=== PATIENT | male | born 1990 | race Caucasian/White ===

== ENCOUNTER 2020-02-18 08:55 | Day surgery (SDC) | payer OTHER ==
--- NOTE | 2020-02-18 09:12 | ED Physician Documentation ---
PD HPI ABD PAIN - Stated complaint Stated Complaint: RT ABD PX - History obtained from History obtained from: Patient - History of Present Illness Timing - onset: Enter time (0200), Today Timing - duration: Hours Timing - details: Abrupt onset, Still present Quality: Sharp, Pain Location: RLQ Improved by: Laying still Worsened by: Eating, Moving, Position, Palpation Associated symptoms: Nausea. No: Vomiting, Diarrhea, Constipation Similar symptoms before: Has not had sx before Recently seen: Clinic - Additional information Additional information: 29-year-old male developed some abdominal pain in the middle of the night periumbilical at about 2:00 in the morning. He had a very difficult time sleeping throughout the night the pain is migrated down to the right lower quadrant and and he has never had pain in this area previously. He tried to eat something this morning did not go down too well and he went in to be checked out was sent to the emergency department for evaluation of appendicitis. He has not had a fever he has not had vomiting he has had 2 bowel movements this morning without relief of his pain. Indicates that he has not otherwise been ill recently. Review of Systems Constitutional: denies: Fever, Myalgias, Fatigue, Sweats Eyes: denies: Decreased vision Ears: denies: Ear pain Nose: reports: Rhinorrhea / runny nose Throat: denies: Dental pain / toothache Cardiac: denies: Chest pain / pressure, Palpitations Respiratory: denies: Dyspnea, Cough GI: reports: Abdominal Pain, Nausea. denies: Abdominal Swelling, Vomiting, Constipation, Diarrhea : denies: Dysuria, Frequency Skin: denies: Rash Musculoskeletal: denies: Neck pain, Back pain, Extremity pain Neurologic: denies: Generalized weakness, Focal weakness, Numbness PD PAST MEDICAL HISTORY - Past Surgical History Past Surgical History: No - Present Medications Home Medications: Ambulatory Orders Medication Instructions Recorded Confirmed No Known Home Medications 02/18/20 02/18/20 - Allergies Allergies/Adverse Reactions: Allergies Allergy/AdvReac Type Severity Reaction Status Date / Time No Known Drug Allergies Allergy Verified 02/18/20 09:24 - Social History Does the pt smoke?: No Smoking Status: Never smoker Does the pt drink ETOH?: No Does the pt have substance abuse?: No - Immunizations Immunizations are current?: Yes - POLST Patient has POLST: No PD ED PE NORMAL - Vitals Vital signs reviewed: Yes - General General: Alert and oriented X 3, No acute distress, Well developed/nourished - HEENT HEENT: Atraumatic, PERRL, EOMI - Neck Neck: Supple, no meningeal sign, No bony TTP - Cardiac Cardiac: RRR, No murmur - Respiratory Respiratory: No respiratory distress, Clear bilaterally - Abdomen Abdomen: Normal bowel sounds, Soft, Non distended, No organomegaly, Other (RLQ pain is reproducible and without garding. There is some referred rebound tenderness. ) - Back Back: No CVA TTP, No spinal TTP - Derm Derm: Normal color, Warm and dry, No rash - Extremities Extremities: No deformity, No edema - Neuro Neuro: Alert and oriented X 3, home visitor home base head start 2-12 intact, No motor deficit, No sensory deficit, Normal speech Eye Opening: Spontaneous Motor: Obeys Commands Verbal: Oriented GCS Score: 15 - Psych Psych: Normal mood, Normal affect Results - Vitals Vitals: Vital Signs - 24 hr 02/18/20 09:13 Temperature 36.7 C Heart Rate 63 Respiratory 18 Rate Blood Pressure 150/74 H O2 Saturation 95 Oxygen O2 Source Room air - Labs Labs: Laboratory Tests 02/18/20 02/18/20 02/18/20 09:12 09:27 09:27 WBC 10.9 H RBC 5.35 Hgb 16.3 Hct 45.4 MCV 84.9 MCH 30.5 MCHC 35.9 RDW 12.1 Plt Count 240 MPV 9.9 Neut # (Auto) 9.2 H Lymph # (Auto) 1.0 L [place] # (Auto) 0.5 Eos # (Auto) 0.0 Baso # (Auto) 0.0 Absolute Nucleated RBC 0.00 Nucleated RBC % 0.0 Sodium 135 Potassium 3.9 Chloride 100 L Carbon Dioxide 25 Anion Gap 10.0 BUN 16 Creatinine 1.0 Estimated GFR (MDRD) 90 Glucose 123 H Calcium 9.3 Total Bilirubin 1.0 AST 17 ALT 21 Alkaline Phosphatase 49 Total Protein 8.0 Albumin 5.2 Globulin 2.8 Albumin/Globulin Ratio 1.9 Lipase 20 L Urine Color YELLOW Urine Clarity CLEAR Urine pH 6.0 Ur Specific [place]ney 1.020 Urine Protein NEGATIVE Urine Glucose (UA) NEGATIVE Urine Ketones NEGATIVE Urine Occult Blood NEGATIVE Urine Nitrite NEGATIVE Urine Bilirubin NEGATIVE Urine Urobilinogen 0.2 (NORMAL) Ur Leukocyte Esterase NEGATIVE Ur Microscopic Review NOT INDICATED Urine Culture Comments NOT INDICATED - Rads (name of study) CT ab/pel w Radiology: Prelim report reviewed (Impression: The appendix is mildly dilated and there is mild surrounding inflammatory change. Findings consistent with mild acute appendicitis. No rupture.), Discussed with rads, EMP read indepedently, See rad report PD MEDICAL DECISION MAKING - ED course Complexity details: reviewed results, re-evaluated patient, considered differential, d/w patient ED course: Previously well 29-year-old male with onset of abdominal pain at about 2 AM has persistence of his pain migrated to the right lower quadrant he has tenderness on examination he has an elevated white blood count of 10.[address] scan of the abdomen and pelvis read by the radiologist is consistent with acute appendicitis. The surgeon Dr. Jaimes is consulted in the case and recommends administration of Unasyn and he will see the patient later this afternoon. He is made n.p.o. and a respiratory PCR is pending. Departure - Departure Disposition: ED Transfer to [facility] Clinical Impression: Appendicitis Qualifiers: Appendicitis type: acute appendicitis Acute appendicitis type: with localized peritonitis Appendicitis gangrene presence: without gangrene Appendicitis perforation presence: without perforation Appendicitis abscess presence: without abscess Qualified Code(s): K35.30 - Acute appendicitis with localized peritonitis, without perforation or gangrene
[2020-02-18 09:23] LABS: BILIRUBIN,URINE NEGATIVE (NEGATIVE); GLUCOSE, URINE (UA) NEGATIVE (NEGATIVE); KETONES,URINE (UA) NEGATIVE (NEGATIVE); LEUKOCYTE ESTERASE, URINE NEGATIVE (NEGATIVE); NITRITE,URINE NEGATIVE (NEGATIVE); OCCULT BLOOD,URINE NEGATIVE (NEGATIVE); PROTEIN,URINE NEGATIVE (NEGATIVE); UROBILINOGEN,URINE 0.2 (NORMAL) E.U./dL (NORMAL)
[2020-02-18 09:24] LABS: CLARITY,URINE CLEAR (CLEAR)
[2020-02-18 09:36] LABS: BASOPHILS % (AUTO) 0.3 %; EOSINOPHILS % (AUTO) 0.1 %; HGB - HEMOGLOBIN 16.3 g/dL (14.0-18.0); LYMPHOCYTES % (AUTO) 9.4 %; MEAN CORPUSCULAR HEMOGLOBIN 30.5 pg (27.0-31.0); MEAN CORPUSCULAR HGB CONC 35.9 g/dL (32.0-36.0); MEAN CORPUSCULAR VOLUME 84.9 fL (80.0-94.0); MEAN PLATELET VOLUME 9.9 fL (7.4-11.4); MONOCYTES # (AUTO) 0.5 10^3/uL (0.0-1.0); MONOCYTES % (AUTO) 4.9 %; NEUTROPHILS # (AUTO) 9.2 10^3/uL (1.5-6.6); NEUTROPHILS % (AUTO) 84.9 %; PLT - PLATELET COUNT 240 10^3/uL (130-450); RED BLOOD COUNT 5.35 10^6/uL (4.70-6.10); RED CELL DISTRIBUTION WIDTH 12.1 % (12.0-15.0); WHITE BLOOD COUNT 10.9 x10^3/uL (4.8-10.8)
[2020-02-18] MEDS ORDERED: IOVERSOL 320 100 ML VIAL IVP ONE ×2 (09:37→13:19)
[2020-02-18 09:51] LABS: ALBUMIN 5.2 g/dL (3.2-5.5); ALBUMIN/GLOBULIN RATIO 1.9 (1.0-2.2); CALCIUM 9.3 mg/dL (8.5-10.3)
--- NOTE | 2020-02-18 10:23 | CT Report ---
PROCEDURE: Abdomen/Pelvis W INDICATIONS: RLQ pain since 2am CONTRAST: IV CONTRAST: Optiray 320 ml: 100 PO CONTRAST: *NO PO CONTRAST TECHNIQUE: After the administration of intravenous contrast, 5 mm thick sections acquired from the diaphragms to the symphysis. 5 mm thick coronal and sagittal reformats were acquired. For radiation dose reducti on, the following was used: automated exposure control, adjustment of mA and/or kV according to clinton ent size. COMPARISON: None. FINDINGS: Image quality: Excellent. ABDOMEN: Lung bases: Lung bases are clear. Heart size is normal. Solid organs: Liver and spleen are normal in size and enhancement. Gallbladder is unremarkable Javi iary system is non dilated. Pancreas enhances normally. No adrenal nodules. Kidneys demonstrate no rmal size and enhancement, without hydronephrosis. Peritoneum and bowel: The appendix is mildly dilated measuring 0.8 cm, (6/27). There is mild surround ing inflammatory change best seen on coronal images. No free air or loculated fluid collection to sug gest rupture. Tiny focus of gas within the lumen of the appendix. No appendicolith seen. No small bow el obstruction. Nodes and vessels: No retroperitoneal or mesenteric adenopathy by size criteria. Aorta and inferior vena cava are normal in size. Miscellaneous: No ventral hernias. PELVIS: Genitourinary: Bladder wall thickness is normal. No free fluid. Miscellaneous: No inguinal hernias or adenopathy. Bones: No suspicious bony lesions. No vertebral body compression fractures. IMPRESSION: The appendix is mildly dilated and there is mild surrounding inflammatory change. Findings consistent with mild acute appendicitis. No rupture. Results were discussed with Dr. Bubba Dye in the emergency department at 9:20 AM [facility] on . Reviewed by: Francisco Pinon MD on 02/18/2020 9:22 AM [facility] Approved by: Francisco Pnion MD on 02/18/2020 9:22 AM [facility] Station ID: [id number]
[2020-02-18] MEDS ORDERED: AMPICILLIN/SULBACTAM 1.5 GM in SODIUM CHLORIDE 0.9% MINIBAG 100 ML IV STA (10:25)
[2020-02-18 12:48] LABS: C. PNEUMONIAE- RESP PCR PANEL NOT DETECTED
--- NOTE | 2020-02-18 13:25 | SURGERY HX AND PHYSICAL(T) ---
Surgical History & Physical - Chief Complaint/HPI Chief Complaint: Abdominal pain History of Present Illness: 29-year-old male presenting with 1 day of abdominal pain. Work-up included CT scan as well as lab evaluation. Patient notable for a leukocytosis, CT consistent with appendicitis with inflammatory changes. Patient with no other past medical history. Opted to proceed to the operating room urgently for laparoscopic intervention. Surgical consultation called. - PMH/PSH/Social Hx Does the pt have a hx of MRSA?: No Smoking Status: Never smoker Does the pt drink ETOH?: No Does the pt have substance abuse?: No - Home Meds and Allergies Home Medications: No Known Home Medications 02/18/20 Allergies/Adverse Reactions: Allergies Allergy/AdvReac Type Severity Reaction Status Date / Time No Known Drug Allergies Allergy Verified 02/18/20 09:24 - Review of Systems Constitutional: Fatigue, Fever Gastrointestinal: Abdominal pain. No: Nausea, Vomiting, Diarrhea - Vital Signs Heart Rate: 82 Blood Pressure: 127/75 Temperature: 36.7 C Respiratory Rate: 16 O2 Saturation: 99 Weight (kg): 98.883 kg Height: 1.91 m - Physical Exam General Appearance: positive: No acute distress, Alert Eyes Bilatera: positive: Normal inspection, PERRL, EOMI ENT: positive: ENT inspection nml Neck: positive: Nml inspection Respiratory: positive: Chest non-tender, No respiratory distress, Breath sounds nml, Wheezes, Rales, Rhonchi Cardiovascular: positive: Regular rate & rhythm Abdomen: positive: No distention, Tenderness. negative: Guarding, Rebound Skin: positive: Color nml Extremities: positive: Non-tender, Full ROM, Nml appearance Neurologic/Psychiatric: positive: Oriented x3, CN's nml (2-12), Motor nml, Sensation nml, Mood/affect nml - Patient Review Patient Review: Problems were reviewed with the patient during this visit. Medications were reviewed with the patient during this visit. Allergies were reviewed this patient during this visit. Pertinent Tests Reviewed: All pertitent test for this patient were reviewed. - Assessment & Plan Assessment and Plan: 29 yo male presenting with acute appendicitis with no comorbid states. Leukocytosis, CT confirmed (see below). Plan going forward is as follows: 1. Bowel rest, IV fluid resuscitation, IV antibiotics. 2. Preoperative chest x-ray, preoperative EKG, labs evaluated. 3. Planned diagnostic laparoscopy, laparoscopic appendectomy, other indicated procedures. Patient counseled of the risk associated with operative intervention including but not limited to conversion to open procedure, injury to local structures, and anesthesia risks of heart attack, stroke, . 4. Postoperative care under observation status with continued IV antibiotics. CT abdomen pelvis impression: 1. The appendix is mildly dilated and there is mild surrounding inflammatory change. 2. Findings consistent with mild acute appendicitis. No rupture.
--- NOTE | 2020-02-18 14:44 | ANESTHESIA ---
Pre-Anesthesia VS, & Labs - Diagnosis appendicitis - Procedure lap appendectomy Vital Signs: Temp Pulse Resp BP Pulse Ox 36.7 C 81 16 133/66 H 100 02/18/20 13:25 02/18/20 13:57 02/18/20 13:57 02/18/20 13:57 02/18/20 13:57 Height: 6 ft 3 in Weight (kg): 98.883 kg Body Mass Index: 27.2 BMI Classification: Overweight - NPO >8 hours - Lab Results Current Lab Results: Laboratory Tests 02/18/20 09:27: Sodium 135, Potassium 3.9, Chloride 100 L, Carbon Dioxide 25, Anion Gap 10.0, BUN 16, Creatinine 1.0, Estimated GFR (MDRD) 90, Glucose 123 H, Calcium 9.3, Total Bilirubin 1.0, AST 17, ALT 21, Alkaline Phosphatase 49, Total Protein 8.0, Albumin 5.2, Globulin 2.8, Albumin/Globulin Ratio 1.9, Lipase 20 L 02/18/20 09:27: WBC 10.9 H, RBC 5.35, Hgb 16.3, Hct 45.4, MCV 84.9, MCH 30.5, MCHC 35.9, RDW 12.1, Plt Count 240, MPV 9.9, Neut # (Auto) 9.2 H, Lymph # (Auto) 1.0 L, [place] # (Auto) 0.5, Eos # (Auto) 0.0, Baso # (Auto) 0.0, Absolute Nucleated RBC 0.00, Nucleated RBC % 0.0 Lab results reviewed: Yes Fish Bones: 02/18/20 09:27 02/18/20 09:27 Home Medications and Allergies Home Medications: Ambulatory Orders No Known Home Medications 02/18/20 No Known Home Medications 02/18/20 Allergies/Adverse Reactions: Allergies Allergy/AdvReac Type Severity Reaction Status Date / Time No Known Drug Allergies Allergy Verified 02/18/20 09:24 Anes History & Medical History - Anesthetic History Anesthesia Complications: reports: No previous complications Family history of Anesthesia Complications: Denies Family history of Malignant Hyperthermia: Denies - Medical History Cardiovascular: reports: None Pulmonary: reports: None Gastrointestinal: reports: None Urinary: reports: None Neuro: reports: None Musculoskeletal: reports: None Endocrine/Autoimmune: reports: None Blood Disorders: reports: None Skin: reports: None Smoking Status: Never smoker Psychosocial: reports: No issues indicated Exam General: Alert, Oriented x3, Cooperative, No acute distress Dental: WNL Mouth Openin Fingerbreadth Neck Mobility: Normal Mallampati classification: II Respiratory: Lungs clear, Normal breath sounds, No respiratory distress, No accessory muscle use Cardiovascular: Regular rate, Normal S1, Normal S2, No murmurs Plan Anesthesia Type: General, Transverse Abdominis Plane (TAP) Block Regional Block: Per Surgeon's request for Post Op pain control Consent for Procedure(s) Verified and Reviewed: Yes Code Status: Attempt Resuscitation ASA classification: 2-Mild systemic disease Is this case an emergency?: No
[2020-02-18] MEDS ORDERED: BUPIVACAINE 0.5% PF 30 ML VIAL SUBQ ONE ×2 (17:11)
[2020-02-18] MEDS ORDERED: LIDOCAINE MPF 2%-EPI 1:200000 20 ML VIAL SUBQ ONE ×2 (17:12)
--- NOTE | 2020-02-18 18:18 | OPERATIVE REPORT ---
Operative Report - General Procedure Date: 02/18/20 Planned Procedure: 1. Diagnostic laparoscopy 2. Laparoscopic appendectomy 3. Lysis of adhesions 4. Abdominal washout Pre-Op Diagnosis: Abdominal pain, acute appendicitis, obesity Procedure Performed: 1. Diagnostic laparoscopy 2. Laparoscopic appendectomy 3. Lysis of adhesions 4. Abdominal washout Post Op Diagnosis: Same, nonsuppurative, nonperforated, appendicitis - Procedure Note Primary Surgeon: Theodore Secondary Surgeon: David Anesthesia Provider: Clay Anesthesia Technique: General ET tube, Local Pathology: Appendix Estimated Blood Loss (mL): 30 Indications: See electronic medical record Findings: 1. Dense right lower quadrant adhesions 2. Nonsuppurative, nonperforated, appendicitis 3. Neither feculent nor purulent peritonitis 4. A hemostatic at the conclusion of this case 5. Ileocecal valve protected and intact; right ureter protected and intact Complications: None - Other Other Information/Narrative: OPERATIVE PROCEDURE: The patient was taken to the operating room, placed supine on the operating table. The patent was already obtained tor informed consent which was documented in the patients permanent medical record The patient was induced for general endotracheal anesthesia. The patient was positioned, off loaded and padded at all pressure points. The patient was placed for a Varma catheter and tucked for the left arm. The patient was prepped and draped in the usual sterile fashion. The patient was called for a time out which was agreed to all in the room. Open Goetz technique was performed through umbilicus and umbilical trocar was placed. This was achieved with a circumlinear sandra-umbilical incision. This is taken through the subcutaneous fat, the umbilical stalk was dissected off and obvious hernia defect was appreciated. This was done without any injury to the umbilical skin. That cocopah defect was enlarged and accommodated Goetz trocar without any complication. Insufflation was commenced which the patient tolerated to 15 mmHg well with no complication. Additional trocars were placed suprapubic and left lower quadrant under direct laparoscopic vision. At this time the patient was placed in Trendelenburg position with right side up and we proceeded to isolate the cecum which was densely adhered to the sidewall. There was dense adhesions of the appendix along the right pelvic inlet. Careful adhesiolysis were performed with laparoscopic electrocautery. The appendix was ultimately dissected free from the sidewall as well as the pelvic inlet protecting the iliac vessels as well as the ureter with no complication. Please note that the ileocecal valve was also protected and remained intact throughout the entirety of this operative intervention. The appendix was continued to be mobilized and thereafter we achieved mobilization medially taking care to note the location of the ureter which was protected and identified throughout the entirety at this case especially given the extent of the patients inflammatory changes. Ultimately the cecum was isolated free, and the appendix was thereafter completely mobilized off the abdominal and pelvic sidewall. At this time there were dense adhesions noted of the appendix to the ascending colon and cecum and this required careful dissection as well, both blunt and also using the suction armature varnisher and laparoscopic electrocautery. At this time a [place] was used to dissect the cecal-appendiceal junction and thereafter using a ENDOGIA linear cutting stapler, the appendix was divided at the base to include portion at the cecum. The ileocecal valve was identified and protected throughout with no involvement. At this time, we continued to mobilize the appendix off the ascending colon and caecum making sure there was no inadvertent injury to the ascending colon and the cecum which was again densely adhered to the appendix. This was performed with great care using blunt as well as laparoscopic electrocautery and blunt dissection with the suction armature varnisher. The mesoappendix as well as a portion of the fold of [place] was divided using the laparoscopic Endo COLTON stapler. This required 2 firings with no complication. After careful dissection the appendix ultimately isolated and dissected free the appendix which was placed into an Endo Catch bag for control of any further spillage. The appendiceal staple line and mesoappendix staple line and ligature were evaluated and hemostatic. At this time, we extensively irrigated the abdomen with greater than 2 liters of sterile saline and aspirated clear. At this time all trochars, secondary, were removed under direct laparoscopic visualization with no consequent bleeding. We removed the Goetz trocar, passed the specimen off for permanent pathology. We closed the umbilical defect with several [id number]'s of 0 Vicryl, and performed umbilicoplasty simultaneous. A mixture of quarter percent Marcaine and 1% lidocaine were instilled within the wounds. All skin and subcutaneous tissue was reapproximated with a subcuticular of 4-0 Monocryl. Wounds were dressed with Dermabond. I was present for the entirety of this operative intervention patient tolerated procedure well which is no complication. All counts were sponges needles and instruments were correct at the conclusion of this operative case. Please note that voice recognition software was used to transcribe this note and inadvertent errors might persist in spite of review and editing. I am obliged to you for your attention. I am thankful to you for allowing me to participate with you in this care of this patient.
[2020-02-18] MEDS ORDERED: LACTATED RINGERS 1,000 ML IV ONE (18:25)
[2020-02-18] MEDS ORDERED: ONDANSETRON 4 MG/2 ML VIAL IVP PRN (18:28)
[2020-02-18] MEDS: HYDROmorphone 0.5 MG/0.5 ML SYRINGE IVP PRN ×2 (18:53→20:07)
[2020-02-18] MEDS: LACTATED RINGERS 1,000 ML IV SCH (18:57)
--- NOTE | 2020-02-18 19:29 | ANESTHESIA POST OP EVALUATION ---
Anesthesia Post Eval - Post Anesthesia Eval Vitals: Last Vital Signs Temp 36.5 C 02/18/20 19:00 Pulse 86 02/18/20 19:00 Resp 18 02/18/20 19:00 BP 155/81 H 02/18/20 19:00 Pulse Ox 96 02/18/20 19:00 CV Function Including HR & BP: positive: Stable Pain Control: positive: Satisfactory Nausea & Vomiting: positive: Negative Mental Status: positive: Baseline Respiratory Status: Airway Patent Hydration Status: Satisfactory Anesthesia Complications: positive: None
[2020-02-18] MEDS: PIPERACILLIN/TAZOBACTAM 3.375 GM in SODIUM CHLORIDE 0.9% MINIBAG 100 ML IV SCH (19:31)
[2020-02-18] MEDS: DOCUSATE SODIUM 100 MG CAPSULE PO SCH (20:02)
[2020-02-18] MEDS: polyethylene glycoL 3350 17 GM PACKET PO SCH (20:02)
[2020-02-18] MEDS: ACETAMINOPHEN 1,000 MG/100 ML 100 ML IV SCH (20:17)
[2020-02-18] MEDS: oxyCODONE 5 MG TABLET PO PRN (22:01)
[2020-02-19] MEDS: ACETAMINOPHEN 1,000 MG/100 ML 100 ML IV SCH ×3 (01:20→13:01)
[2020-02-19] MEDS: PIPERACILLIN/TAZOBACTAM 3.375 GM in SODIUM CHLORIDE 0.9% MINIBAG 100 ML IV SCH ×3 (01:21→13:01)
[2020-02-19] MEDS: oxyCODONE 5 MG TABLET PO PRN ×3 (02:14→12:50)
[2020-02-19] MEDS: LACTATED RINGERS 1,000 ML IV SCH (04:56)
[2020-02-19 06:00] LABS: BASOPHILS % (AUTO) 0.4 %; EOSINOPHILS # (AUTO) 0.1 10^3/uL (0.0-0.7); EOSINOPHILS % (AUTO) 0.8 %; HGB - HEMOGLOBIN 13.1 g/dL (14.0-18.0); LYMPHOCYTES # (AUTO) 1.9 10^3/uL (1.5-3.5); LYMPHOCYTES % (AUTO) 23.9 %; MEAN CORPUSCULAR HEMOGLOBIN 30.3 pg (27.0-31.0); MEAN CORPUSCULAR HGB CONC 34.6 g/dL (32.0-36.0); MEAN CORPUSCULAR VOLUME 87.7 fL (80.0-94.0); MEAN PLATELET VOLUME 9.6 fL (7.4-11.4); MONOCYTES # (AUTO) 0.7 10^3/uL (0.0-1.0); MONOCYTES % (AUTO) 9.1 %; NEUTROPHILS # (AUTO) 5.1 10^3/uL (1.5-6.6); NEUTROPHILS % (AUTO) 65.5 %; PLT - PLATELET COUNT 187 10^3/uL (130-450); RED BLOOD COUNT 4.32 10^6/uL (4.70-6.10); RED CELL DISTRIBUTION WIDTH 12.2 % (12.0-15.0); WHITE BLOOD COUNT 7.8 x10^3/uL (4.8-10.8)
[2020-02-19 06:15] LABS: ALBUMIN 3.7 g/dL (3.2-5.5); ALBUMIN/GLOBULIN RATIO 1.8 (1.0-2.2); BILIRUBIN,TOTAL 1.5 mg/dL (0.2-1.0); CALCIUM 8.5 mg/dL (8.5-10.3); TOTAL PROTEIN 5.8 g/dL (6.7-8.2)
[2020-02-19] MEDS: DOCUSATE SODIUM 100 MG CAPSULE PO SCH (07:53)
[2020-02-19] MEDS: polyethylene glycoL 3350 17 GM PACKET PO SCH (07:53)
--- NOTE | 2020-02-19 08:24 | PHARMACY PROGRESS NOTE ---
- Best Possible Medication History Admit Date and Time: Processed by: Nursing Medication History completed: Yes Patient Interview: Completed As the person ultimately responsible for medication therapy, providers are able to order a medication from an existing home medication list in [facility] via the "Reconcile Routine" prior to Confirmation of that medication by support team member. Such practice is discouraged except when the physician, in their clinical judgment, deems that a medical need exists for a medication without regard to previous use.
--- NOTE | 2020-02-19 12:18 | Discharge Plan ---
Discharge Plan Problem Reviewed?: Yes Disposition: 01 Home, Self Care Condition: Good Prescriptions: oxyCODONE [Roxicodone] 5 mg PO Q4HR PRN #24 tablet PRN Reason: Pain Docusate Sodium 100Mg Capsule [Colace 100Mg Capsule] 100 mg PO BID #60 capsule polyethylene glycoL 3350 [Miralax] 17 gm PO BID #30 packet Diet: Soft Activity Restrictions: Activity as Tolerated Shower Restrictions: No Driving Restrictions: Yes (No driving while taking narcotics) Instruction Topics: Appendectomy After, Appendicitis, Appendx Surg, Umbilical Hernia Repair After Ch Assessment: Subjective Postoperative day #1 status post laparoscopic appendectomy with open umbilical hernia repair. Nonsuppurative nonperforated appendix. Patient overall feeling well. Passing flatus no nausea no vomiting. Objective Afebrile hemodynamically acceptable General Appearance: positive: No acute distress Eyes Bilateral: positive: Normal inspection ENT: positive: ENT inspection nml Neck: positive: Nml inspection Respiratory: positive: Chest non-tender, No respiratory distress, Breath sounds nml. negative: Wheezes, Rales, Rhonchi Cardiovascular: positive: Regular rate & rhythm Abdomen: positive: No distention, Other. negative: Guarding, Rebound Extremities: positive: Non-tender, Full ROM, Nml appearance Neurologic/Psychiatric: positive: Oriented x3, CN's nml (2-12) Impression/Plan Postoperative day #1 status post laparoscopic appendectomy with open umbilical hernia repair. Appropriate for discharge to home. Discharge instructions given. No heavy lifting pushing or pulling. No indication for antibiotics. Plan outpatient follow-up in 2 weeks. Additional Instructions or Follow Up instructions: DISCHARGE INSTRUCTIONS TEMPLATE: No heavy lifting, pushing, or pulling. Stairs are allowed, no strenuous/exertional activities. 5-10lbs weight carrying limit (i.e. gallon of milk) If provided, abdominal binder while out of bed and while ambulating. Call or proceed to clinic/ER for fevers, severe pain, nausea, vomiting, inability to pass flatus/stool, bleeding, wound redness/discharge, weakness, excessively loose stool/diarrhea, or for any other reasonably worrisome symptom or concern. Soft diet, no raw vegetables, avoid high fiber foods. Colace 100mg by mouth twice to three times daily while taking narcotic pain medication. If no bowel movement in 24-48hr, may take 17g Miralax in 8oz water twice daily until bowel movement. May shower, no submersive bathing. Follow up in clinic in 2-4 weeks for wound check and staple removal. No driving while taking narcotic pain medications. Follow up with primary care provider and/or medical subspecialist following discharge as well. Patient not allowed to drive self today or within 24 hours of surgery. No Smoking: If you smoke, Please STOP! Call for help. Follow-up with: Kavon Jaimes MD [Provider Admit Priv/Credential] -
[2020-02-19 13:08] VITALS: BP 114/51
== END 2020-02-19 13:10 | disposition home or self-care (01) ==
LOC: ED 08:55 → SDS 16:00 → MS2 18:41 → SDS 02-19 13:10
PROVIDERS: ATTEND Surgery
PROC: 0DTJ4ZZ Resection of Appendix, Percutaneous Endoscopic Approach (ICD-10-PCS; principal; 2020-02-18 16:00)
DX: K35.80 Unspecified acute appendicitis (principal); Z20.822 Contact with and (suspected) exposure to COVID-19; E66.3 Overweight; Z68.27 Body mass index [BMI] 27.0-27.9, adult
CPT/HCPCS: 0202U; 36415; 44970; 74177; 80053; 81003; 83690; 85025; 96365; 99284; 99285; A9270; J0131; J1170; J7120; Q9967; 81001; 87086